=== PATIENT | male | born 1950 | race Caucasian/White ===

== ENCOUNTER 2017-10-12 11:13 | Emergency (ER) | payer BC ==
[~2017-10-12] VITALS: Ht 170.2 cm; Wt 59.0 kg
[2017-10-12 11:18] VITALS: Ht 170.2 cm; Wt 59.0 kg
[2017-10-12 11:55] LABS: BASOPHIL % 1.1 % (0-2); PLATELET COUNT 337 x10^3mcL (130-400); RED CELL DISTRIBUTION WIDTH 12.8 % (11.5-14.5)
[2017-10-12 12:20] LABS: CALCIUM 9.3 mg/dL (8.5-10.1); CHLORIDE SERUM 99 mmol/L (98-107); CREATININE SERUM 0.9 mg/dL (0.7-1.3); GFR1 > 60 mL/min; GLUCOSE SERUM 134 mg/dL (74-106); POTASSIUM SERUM 4.4 mmol/L (3.5-5.1); SODIUM SERUM 138 mmol/L (136-145)
[2017-10-12 12:26] LABS: ALBUMIN 4.3 g/dL (3.4-5.0); ALKALINE PHOSPHATASE 62 U/L (46-116); ALT/SGPT 36 U/L (16-63); AST/SGOT 21 U/L (15-37); BILIRUBIN TOTAL 1.6 mg/dL (0.20-1.00); CHOLESTEROL 239 mg/dL (<200); HDL CHOLESTEROL 90 mg/dL (40-60); MAGNESIUM 2.2 mg/dL (1.8-2.4); TOTAL PROTEIN, SERUM 7.8 g/dL (6.4-8.2)
[2017-10-12 13:28] LABS: AMPHETAMINE QUAL UR NONE DETECTED (NEG <=1000)
[2017-10-12 14:18] VITALS: BP 144/83
== END 2017-10-12 14:18 | disposition home or self-care (01) ==
LOC: ED 11:13
PROVIDERS: Emergency Medicine
DX: R42 Dizziness and giddiness (principal); E78.00 Pure hypercholesterolemia, unspecified; R11.0 Nausea; I10 Essential (primary) hypertension
CPT/HCPCS: 36415; 83880; J8597; Q0092; Q0162